=== PATIENT | female | born 1995 | race Caucasian/White ===

== ENCOUNTER 2022-05-16 01:56 | Emergency (ER) | payer OTHER ==
[2022-05-16 02:05] VITALS: BP 121/83
[2022-05-16] MEDS ORDERED: ACETAMINOPHEN 500 MG TABLET PO STA (02:19)
[2022-05-16 02:45] LABS: RAPID STREP SCREEN Negative (Negative)
--- NOTE | 2022-05-16 02:51 | ED Physician Documentation ---
PD HPI HEENT - Stated complaint Stated Complaint: SORE THROAT/FEVER - Chief complaint Chief Complaint: Heent - History obtained from History obtained from: Patient - Additional information Additional information: Patient is a 26-year-old female with no significant past medical history presenting for evaluation of sore throat for 2 days. Patient has reported a sore throat since Friday and took a COVID test at home on Friday which was negative. 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 She reports having had a fever with T-max of 100.4. She has been using Tylenol for fever and pain. She had a strep test done at the walk-in clinic but does not believe a culture was done.She believes she is approximately 10 weeks but is scheduled for her first OB visit this Friday. She denies vaginal bleeding, cramping, dizziness,Abdominal Or back pain. This is her first . She has not yet had an ultrasound.She is taking vitamins. Review of Systems Constitutional: denies: Fever Nose: denies: Congestion Throat: reports: Sore throat Cardiac: denies: Chest pain / pressure Respiratory: denies: Dyspnea, Cough GI: denies: Abdominal Pain, Vomiting : denies: Dysuria, Hematuria, Discharge, Vaginal bleeding Musculoskeletal: denies: Back pain Neurologic: denies: Headache PD PAST MEDICAL HISTORY - Allergies Allergies/Adverse Reactions: Allergies Allergy/AdvReac Type Severity Reaction Status Date / Time No Known Drug Allergies Allergy Verified 05/16/22 02:05 PD ED PE NORMAL - General General: Alert and oriented X 3, No acute distress, Well developed/nourished - HEENT HEENT: Atraumatic, Moist mucous membranes, Pharynx benign, Other (No oral swelling, exudate or masses, normal speech, no drooling or trismus) - Neck Neck: Supple, no meningeal sign - Cardiac Cardiac: RRR, No murmur, Strong equal pulses - Respiratory Respiratory: No respiratory distress, Clear bilaterally - Abdomen Abdomen: Normal bowel sounds, Soft, Non tender, Non distended - Derm Derm: Warm and dry - Extremities Extremities: No edema - Neuro Neuro: Normal speech Results - Vitals Vitals: Vital Signs - 24 hr 05/16/22 02:01 Temperature 37.3 C Heart Rate 87 Respiratory 16 Rate Blood Pressure 121/83 H O2 Saturation 99 Oxygen O2 Source Room air - Labs Labs: Laboratory Tests 05/16/22 02:21 Group A Strep Rapid Negative PD MEDICAL DECISION MAKING - ED course Complexity details: reviewed results, re-evaluated patient, d/w patient ED course: Patient with sore throat for 2 days. Patient is already had a negative COVID PCR test. Rapid strep was repeated this evening as we are able to send it off for culture. Rapid is negative and culture is pending. Patient is currently approximately 10 weeks and is scheduled to see her OB doctor on Friday. Considered Decadron but this is a category C. Recommended at this time to increase her Tylenol dosage as she is only using 500 mg occasionally.Also reminded to continue to stay hydratedAdvised on strict return precautions for any worsening symptoms. She is aware of need for close follow-up with her OB doctor. She has no complaints to warrant emergent ultrasound or suggestive of ectopic .Patient is well-appearing with no signs of airway compromise. Departure - Departure Disposition: Home, Self Care Clinical Impression: Acute viral pharyngitis Condition: Stable Instructions: ED Pharyngitis Viral Comments: You were evaluated for a sore throat today. On exam I do not see signs of an abscess. A strep test was done which is negative. However we will also send it for culture to ensure that you do not need any antibiotics. Please continue with using Tylenol as needed for pain. You can use up to 1000 mg every 6 hours as needed. Do not exceed 4000 mg/day Of acetaminophen. If it anytime you have any worsening symptoms such as trouble swallowing or breathing, please return to the emergency department. Forms: Activity restrictions Discharge Date/Time: 05/16/22 03:02
== END 2022-05-16 03:02 | disposition home or self-care (01) ==
LOC: ED 01:56
DX: O99.511 Diseases of the respiratory system complicating pregnancy, first trimester (principal); J02.9 Acute pharyngitis, unspecified; Z3A.10 10 weeks gestation of pregnancy
CPT/HCPCS: 87070; 87430; 99282; 99283; A9270